=== PATIENT | male | born 1995 | race Caucasian/White ===

== ENCOUNTER 2016-10-02 22:18 | Emergency (ER) | payer MEDICAID ==
[~2016-10-02] VITALS: Ht 188 cm; Wt 86.2 kg
[~2016-10-02 22:18] MED LIST: BENADRYL 50MG C50 MG PO; CLONIDINE 0.2M0.2 MG PO; EPI-PEN1 MG/ML MR; INTUNIV2 MG PO; KEFLEX 250MG.250 MG PO; NAPROSYN 500MG500 MG PO; NOMEDS XX; PREDNISONE 20MG20 MG PO; TAGAMET400 MG PO; TYLENOL W/120 ML/BOT PO; ZITHROMAX Z PA250 MG PO
[2016-10-02] MEDS ORDERED: BACTROBAN2% TP (23:05)
[2016-10-02] MEDS ORDERED: SEPTRA DS 800 M1 TAB PO (23:05)
--- NOTE | 2016-10-02 23:11 | Emergency Room Report ---
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 Y Clinical Suspician of Infection? N Mental Status: 1 - Regular (Normal Baseline) Sepsis Risk:Low Sepsis Risk Have you (or family members/close friends) recently traveled outside the [place]? N If Yes, where/when: Have you had exposure to infectious disease within the past month? N TB? Other? Specify: Source patient, RN notes reviewed, family, old records Exam Limitations no limitations Comment lt nares with tender and no drainage over the last few days Cardiac Chest Pain Chest pain indicative of cardiac No Timing/Duration this evening Severity moderate Home Medications Reported Medications No Home Medications (NO HOME MEDICATIONS) 1 EACH XX ONCE History Medical History General CAD? No Angina: No [place]: No Hypertension? No Hyperlipidemia? No CHF? No DVT? No PE? No COPD? No Asthma? No Anemia? No GERD? No Gastric ulcers? No GI Bleed? No Hernia? No Thyroid Problems? No Hypothyroidism? No CVA? No Seizures? No Diabetes? No Insulin Dependent: No Insulin Pump: No Home FSBS? No Renal Insuffiency? No End Stage Renal Disease? No UTI? No Stones? No BPH? No GB Disease: No Nephritic Syndrome? No Asplenia? No Hepatitis? No Sickle Cell Disease? No Arthritis? No Migraines? No Cataracts? No Glaucoma? No MRSA? No HIV? No TB? No Anxiety? No Depression? No Cancer? No More? No Immunization Hx Ped.Immunizations UTD No DT/Tetanus 1-4 YRS Surgical Hx Previous Surgery?Y Tonsils Social History Smoking Hx Smoker: Current Some Day Smoker Tobacco: No Type Cigarettes Packs/day < 1 Pack Are you/the child exposed to second-hand smoke: No Alcohol Alcohol: No Drugs none Review of Systems All Other Systems Reviewed and Negative Constitutional denies fever Eyes denies drainage ENT see HPI, nose pain. denies: epistaxis, throat pain, throat swelling. Respiratory denies cough, denies shortness of breath Cardiovascular denies chest pain, denies palpitations Gastrointestinal denies abdominal pain, denies diarrhea, denies vomiting Genitourinary denies: dysuria, frequency, hesitancy, hematuria. Musculoskeletal denies back pain, denies joint pain, denies joint swelling, denies neck pain Skin denies rash Psychiatric/Neurological denies headache, denies seizure Physical Exam Vital Signs Vital Signs Date Time Temp Pulse Resp B/P Pulse O2 O2 Flow FiO2 Ox Delivery Rate 10/02 2224 98.2 87 20 132/88 98 - WBC >12,000 or <4,000 or 10% bands? 2 or more SIRS Criteria Met? B/P:132/88 MAP:102 Creatinine >2.0? UA output<0.5ml/kg/hr for 2 hrs? Platelet count >100,000? Lactate >2.0mmol/1? INR >1.2 or PTT > than 60 sec? Evidence of Organ Dysfunction? Provider documented clinical suspician of infection? N Sepsis Criteria Count: 1 Sepsis Risk: Low Sepsis Risk General Appearance no apparent distress Eye Exam - bilateral eye PERRL, bilateral eye EOMI Ear, Nose, Throat nasal cellulitis Neck supple Respiratory Status No: respiratory distress. 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 No Departure Departure Time of Disposition 2302 Disposition [place] Home or Self Care(routine) Clinical Impression Primary Impression: Cellulitis Qualifiers: Site of cellulitis: face Qualified Code: L03.211 - Cellulitis of face Condition STABLE Patient Instructions DI for Cellulitis -- Adult Additional Instructions use meds and see pcp for follow up Discharge Counseling Counseled pt/family regarding diagnosis, medications/RX, follow up needs Prescriptions Current Visit Scripts MUPIROCIN 2% (Bactroban Oint) 1 KELL TP BID #1 TUBE SULFAMETHOXAZOLE/TRIMETHOPRIM (Sulfamethoxazole-Tmp Ds Tablet) 1 TAB PO BID #20 TAB ED Critical Care Critical Care No at 2310
--- NOTE | 2016-10-02 23:11 | Emergency Room Report ---
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 Y Clinical Suspician of Infection? N Mental Status: 1 - Regular (Normal Baseline) Sepsis Risk:Low Sepsis Risk Have you (or family members/close friends) recently traveled outside the [place]? N If Yes, where/when: Have you had exposure to infectious disease within the past month? N TB? Other? Specify: Source patient, RN notes reviewed, family, old records Exam Limitations no limitations Comment lt nares with tender and no drainage over the last few days Cardiac Chest Pain Chest pain indicative of cardiac No Timing/Duration this evening Severity moderate Home Medications Reported Medications No Home Medications (NO HOME MEDICATIONS) 1 EACH XX ONCE History Medical History General CAD? No Angina: No [place]: No Hypertension? No Hyperlipidemia? No CHF? No DVT? No PE? No COPD? No Asthma? No Anemia? No GERD? No Gastric ulcers? No GI Bleed? No Hernia? No Thyroid Problems? No Hypothyroidism? No CVA? No Seizures? No Diabetes? No Insulin Dependent: No Insulin Pump: No Home FSBS? No Renal Insuffiency? No End Stage Renal Disease? No UTI? No Stones? No BPH? No GB Disease: No Nephritic Syndrome? No Asplenia? No Hepatitis? No Sickle Cell Disease? No Arthritis? No Migraines? No Cataracts? No Glaucoma? No MRSA? No HIV? No TB? No Anxiety? No Depression? No Cancer? No More? No Immunization Hx Ped.Immunizations UTD No DT/Tetanus 1-4 YRS Surgical Hx Previous Surgery?Y Tonsils Social History Smoking Hx Smoker: Current Some Day Smoker Tobacco: No Type Cigarettes Packs/day < 1 Pack Are you/the child exposed to second-hand smoke: No Alcohol Alcohol: No Drugs none Review of Systems All Other Systems Reviewed and Negative Constitutional denies fever Eyes denies drainage ENT see HPI, nose pain. denies: epistaxis, throat pain, throat swelling. Respiratory denies cough, denies shortness of breath Cardiovascular denies chest pain, denies palpitations Gastrointestinal denies abdominal pain, denies diarrhea, denies vomiting Genitourinary denies: dysuria, frequency, hesitancy, hematuria. Musculoskeletal denies back pain, denies joint pain, denies joint swelling, denies neck pain Skin denies rash Psychiatric/Neurological denies headache, denies seizure Physical Exam Vital Signs Vital Signs Date Time Temp Pulse Resp B/P Pulse O2 O2 Flow FiO2 Ox Delivery Rate 10/02 2224 98.2 87 20 132/88 98 - WBC >12,000 or <4,000 or 10% bands? 2 or more SIRS Criteria Met? B/P:132/88 MAP:102 Creatinine >2.0? UA output<0.5ml/kg/hr for 2 hrs? Platelet count >100,000? Lactate >2.0mmol/1? INR >1.2 or PTT > than 60 sec? Evidence of Organ Dysfunction? Provider documented clinical suspician of infection? N Sepsis Criteria Count: 1 Sepsis Risk: Low Sepsis Risk General Appearance no apparent distress Eye Exam - bilateral eye PERRL, bilateral eye EOMI Ear, Nose, Throat nasal cellulitis Neck supple Respiratory Status No: respiratory distress. 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 No Departure Departure Time of Disposition 2302 Disposition [place] Home or Self Care(routine) Clinical Impression Primary Impression: Cellulitis Qualifiers: Site of cellulitis: face Qualified Code: L03.211 - Cellulitis of face Condition STABLE Patient Instructions DI for Cellulitis -- Adult Additional Instructions use meds and see pcp for follow up Discharge Counseling Counseled pt/family regarding diagnosis, medications/RX, follow up needs Prescriptions Current Visit Scripts MUPIROCIN 2% (Bactroban Oint) 1 KELL TP BID #1 TUBE SULFAMETHOXAZOLE/TRIMETHOPRIM (Sulfamethoxazole-Tmp Ds Tablet) 1 TAB PO BID #20 TAB ED Critical Care Critical Care No at 2310
[2016-10-02 23:14] VITALS: BP 132/88
== END 2016-10-02 23:17 | disposition home or self-care (01) ==
LOC: ER 22:18
DX: L03.211 Cellulitis of face (principal); Z72.0 Tobacco use

== ENCOUNTER 2017-05-06 17:19 | Emergency (ER) | payer MEDICAID ==
[~2017-05-06] VITALS: Ht 193 cm; Wt 127.0 kg
[~2017-05-06 17:19] MED LIST changes: +BACTROBAN2% TP; +SEPTRA DS 800 M1 TAB PO
--- NOTE | 2017-05-06 17:43 | Urgent Treatment Center Report ---
History of Present Issue Date/Time Seen by Provider 05/06/17 6925 Visit Reason Pt arrived:Walked Presenting Problem:PT C/O RT HAND PAIN AFTER PUNCHING A ROAD SIGN YESTERDAY OUT OF ANGER Location if Accident:Street/Road Onset of symptoms date/time:/ or onset unknown for:MEDICAL HX UNKNOWN Have you (or family members/close friends) recently traveled outside the [place]? N If Yes, where/when: Have you had exposure to infectious disease within the past month? TB? Other? Specify: c/o right middle knuckle pain and swelling after punching a road sign at 11pm last night due to anger. Hx of right hand fracture twice in the past. Thinks once to right 5th MCP and metacarpal leaving hand "permanently deformed because I pushed the knuckle back. The other time to 3rd metacarpal leaving "a bone chip in my knuckle". No treatment prior to arrival. Full ROM but pain 3rd MCP w/ ROM. Also c/o "asthma acting up". Hx of asthma and PNA. Last had PNA 2014 while working in [place]. Cough, chest congestion, worsening SOA, wheezing x 2 weeks. No fever. Hasn't had own inhaler "since I was a kid". Friend had a yellow inhaler and he used that initially. Seemed to help. Girlfriend w/ same symptoms. pt smokes approx 1/2ppd but lately less due to symptoms. Source patient Exam Limitations no limitations ALLERGIES Coded Allergies: No Known Allergies (10/02/16) Home Medications Reported Medications No Home Medications (NO HOME MEDICATIONS) 1 EACH XX ONCE History Medical History General CAD? No Angina: No [place]: No Hypertension? No Hyperlipidemia? No CHF? No DVT? No PE? No COPD? No Asthma? No Anemia? No GERD? No Gastric ulcers? No GI Bleed? No Hernia? No Thyroid Problems? No Hypothyroidism? No CVA? No Seizures? No Diabetes? No Insulin Dependent: No Insulin Pump: No Home FSBS? No Renal Insuffiency? No UTI? No Stones? No BPH? No GB Disease: No Nephritic Syndrome? No Asplenia? No Hepatitis? No Sickle Cell Disease? No Arthritis? No Migraines? No Cataracts? No Glaucoma? No MRSA? No HIV? No TB? No Anxiety? No Depression? No Cancer? No More? No Immunization HX DT/Tetanus 1-4 YRS Surgical Hx Previous Surgery?Y Tonsils Social History Smoking Hx Smoker: Current Every Day Smoker Tobacco: Yes Type Cigarettes Packs/day < 1 Pack Alcohol Alcohol: No Review of Systems All Other Systems Reviewed and Negative Constitutional see HPI Eyes denies drainage ENT see HPI. denies: ear pain, nose discharge, nose congestion, throat pain. Respiratory see HPI Cardiovascular denies chest pain, denies palpitations Gastrointestinal denies no symptoms reported Musculoskeletal denies other (wrist or FA pain) Skin denies change in color, denies lesions, denies lumps, denies rash Psychiatric/Neurological denies headache, denies numbness, denies tingling Physical Exam Vital Signs Vital Signs Date Time Temp Pulse Resp B/P Pulse O2 O2 Flow FiO2 Ox Delivery Rate 05/06 1726 98.2 87 16 148/88 96 General Appearance normal appearance, no apparent distress Eye Exam - bilateral eye normal exam Ear, Nose, Throat normal ENT inspection Neck non-tender, supple Respiratory Status Yes: trachea midline, chest symmetrical, non tender chest, non productive cough (worse w/ deep breathing). No: respiratory distress, use of accessory muscles, pain on inspiration, pain on expiration. Lung Sounds anterior: rhonchi, wheezing (primarily expiratory). posterior: rhonchi, wheezing (primarily expiratory). bilateral: rhonchi, wheezing (primarily expiratory). Cardiovascular regular rate/rhythm, no peripheral edema, no murmur Extremities normal range of motion (rt digits, wrist, elbow), swelling (right 3rd MCP joint), tenderness right 3rd MCP joint and metacarpal Neurologic alert, oriented x 3 Mental status normal mood/affect Skin normal color, warm/dry Lymphatic no adenopathy Medical Decision Making LABS/Meds/Orders Pt receiving controlled substance in ED? No Results/Orders Current Medication Orders Sig/Lou Start time Last Medication Dose Route Stop Time Status Admin Methylprednisolone 0 .STK-MED ONE 05/06 181 DC Sodium Succinate .ROUTE Albuterol/Ipratropium 0 .STK-MED ONE 05/06 1756 DC INH Albuterol/Ipratropium 3 ML ONCE ONE 05/06 1745 DC 05/06 INH 05/06 1746 1745 Methylprednisolone 125 MG ONCE ONE 05/06 1745 DC 05/06 Sodium Succinate IM 05/06 174 1818 Orders Procedure Date/time Status RT Aerosol Treatment, Provide 05/06 1837 Active RT REQUEST DUONEB 05/06 1738 Active HAND-RT 3 VIEWS 05/06 1728 Active CHEST(2 VIEWS-NOT PORTABLE) 05/06 1728 Active XRAY/CT/US XRAY/CT/US XRAY chest, hand (right) XR interpretation by reviewed by me (w/ Dr. Moses) Xray Results no acute findings on CXR or hand xray. Departure Departure Time of Disposition 1908 Disposition [place] Home or Self Care(routine) Clinical Impression Primary Impression: Acute bronchitis Qualifiers: Bronchitis organism: unspecified organism Qualified Code: J20.9 - Acute bronchitis, unspecified Secondary Impressions: Contusion of right hand including fingers Qualifiers: Encounter type: initial encounter Qualified Code: S60.221A - Contusion of right hand, initial encounter Tobacco abuse Condition STABLE Referrals NO REFERRAL Follow up with primary care IMMEDIATELY for new or worsening symptoms OR no noticeable improvement over the next 48-72 hours. 911 for difficulty breathing. Nasim Basilio MD For new, worsening or persistant hand symptoms. If necessary, he will evaluate you and send you to a hand specialist. Patient Instructions DI for Acute Bronchitis, DI for Contusion, How To Perform RICE (Rest, Ice, Compress, Elevate), How to Quit Tobacco Products Additional Instructions * start antibiotic today. Be sure to complete entire prescription even if feeling better. * Monitor Temp. Seek treatment if fever develops * humidifier/vaporizer/hot steamy shower * Inhaler every 4-6 hours as needed like we discussed. If unsure how to use it, ask pharmacist to demonstrate how. Should help open airways and improve cough, wheezing, shortness of breath. * Mucinex during the day for your cough and cough suppressant only at night. Be sure to drink lots of water. Insurance may not cover a prescription of mucinex. Might be cheaper to get 400mg tablets and take 2 tablets morning, midday and evening all with lots of water. * Promethazine DM cough syrup will cause drowsiness. Use it only at night. No driving, operating machinery or caring for small children after taking it. * Start steroid tomorrow since you had an injection in clinic. Helps with inflammation therefore, cough and wheezing. Follow directions on package. Rvwd side effects. Pt reports they have taken them before. STOP SMOKING * * Rest right hand * ice 15-20 mins 3-4 times a day * Elevate as discussed as much as possible to help reduce swelling and therefore , pain * Ibuprofen every 6 hours as needed for pain and inflammation. If you need something more, you can take tylenol every 4 hours as needed as long as your primary care provider has told you it is ok to take both. Discharge Counseling Counseled pt/family regarding diagnosis, test results, medications/RX, home care, follow up needs Prescriptions Current Visit Scripts ALBUTEROL (Proventil Hfa Inhaler) 1-2 PUFF IH Q4-6H PRN PRN SOA, wheezing #1 CAN Azithromycin (Zithromycin (Z-PATRICIA) 250MG Tab) 250 MG PO DAILY #6 TAB TAKE TWO (2) TABLETS ON DAY 1, THEN ONE (1) TABLET DAY #2 THRU #5 Prednisone (Prednisone 20MG) 20 MG PO BID #10 TAB PROMETHAZINE/DEXTROMETHORPHAN (Promethazine-Dm Syrup) 10 ML PO QHSP PRN cough #120 SYR will cause drowsiness at 1914
[2017-05-06] MEDS ORDERED: PROMETHAZINE D118 ML PO (19:14)
[2017-05-06] MEDS ORDERED: PREDNISONE 20MG20 MG PO (19:14)
[2017-05-06] MEDS ORDERED: PROVENTIL0.09 MG/A1 IH (19:14)
[2017-05-06] MEDS ORDERED: ZITHROMAX Z PA250 MG PO (19:14)
[2017-05-06 19:27] VITALS: BP 148/88
--- NOTE | 2017-05-06 21:23 | RADIOLOGY REPORT PS360 ---
CHEST(2 VIEWS-NOT PORTABLE) HISTORY: Cough and congestion HIT A ROAD SIGN YESTERDAY ORDERING PHYSICIAN: MARIANNA JIANG APRN PATIENT AGE: 21 years COMPARISON: 03/09/2012 FINDINGS: The cardiomediastinal silhouette and pulmonary vascularity are within normal limits. The lungs are clear without infiltrates, suspicious nodules, or pleural effusions. No acute bony abnormalities. IMPRESSION: Negative chest, no acute finding
--- NOTE | 2017-05-06 21:25 | RADIOLOGY REPORT PS360 ---
HAND-RT 3 VIEWS HISTORY: Pain following injury HIT A ROAD SIGN YESTERDAY ORDERING PHYSICIAN: MARIANNA JIANG APRN PATIENT AGE: 21 years COMPARISON: 03/14/2017 FINDINGS: There is an old avulsion fracture involving the proximal and ulnar aspect of the proximal phalanx of the third digit. There is an old fracture of the fifth metacarpal. No acute fracture or dislocation with no significant change from 03/14/2017 IMPRESSION: 1. No acute fracture. 2. Old third proximal phalanx and fifth metacarpal fracture
== END 2017-05-06 19:36 | disposition home or self-care (01) ==
LOC: UTC 17:19
DX: S60.221A Contusion of right hand, initial encounter (principal); J20.9 Acute bronchitis, unspecified; Z72.0 Tobacco use; J45.909 Unspecified asthma, uncomplicated; W22.8XXA Striking against or struck by other objects, initial encounter; Y92.89 Other specified places as the place of occurrence of the external cause

== ENCOUNTER 2017-06-04 18:17 | Emergency (ER) | payer SELFPAY ==
[~2017-06-04] VITALS: Ht 193 cm; Wt 102.1 kg
[~2017-06-04 18:17] MED LIST changes: +PROMETHAZINE D118 ML PO; +PROVENTIL0.09 MG/A1 IH
--- OUTSIDE RECORDS SUMMARY | 2017-06-04 18:30 | External Medical Summary Rpt | CCD ---
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 (dipstick) panel in Urine (02-27-2017 14:55) Appeara Clear CLEAR complet nce of 017 ed Urine 14:55 Bilirub NEGATIV NEG complet in 017 E ed [Presen 14:55 ce] in Urine by Test strip Erythro NEGATIV NEG complet cytes 017 E ed [Presen 14:55 ce] in Urine Color YELLOW YELLOW complet of 017 ed Urine 14:55 Ketones NEGATIV NEG complet 017 E ed [Presen 14:55 ce] in Urine by Automat ed test strip Leukocy NEGATIV NEG complet te 017 E ed esteras 14:55 e [Presen ce] in Urine by Automat ed test strip Nitrite NEGATIV NEG complet 017 E ed [Presen 14:55 ce] in Urine by Test strip Urobili 0.2 NEG complet nogen 017 ed [Presen 14:55 ce] in Urine by Test strip Procedures Procedure DOS Code Location Performer Comment APPLICATI 31610 DAMEON HERNANDEZ ON SHORT 7 PHYSICIAN ARM S, PLLC SPLINT FOREARM-H AND STATIC RADEX 09957 DAMEON GUTIERREZUSCH HAND 7 PHYSICIAN MINIMUM 3 S, PLLC VIEWS URNLS DIP 29353 KETAN ACEVES 7 [facility] STICK/TAB INC INC LET RGNT AUTO W/O MICROSCOP Y THERAPEUT 60309 KETAN ACEVES IC 7 [facility] PROPHYLAC INC INC TIC/DX INJECTION SUBQ/IM SMR PRIM 53960 KETAN ACEVES SRC WET 7 [facility] MOUNT INC INC NFCT AGT TISS KALANI 33433 KETAN ACEVES SLIDE 7 [facility] SAMPS INC INC SKN/HR/NL S FNGI/ECTO PARASIT OPHTH 05719 [facility] 4 GRE GRE XM&EVAL COMPRE NEW PT 1/> VST RADEX 22916 KETAN ACEVES HAND 3 [facility] MINIMUM 3 INC INC VIEWS RADEX 92578 [place] HAND 3 [facility] [place] MINIMUM 3 IMAGING VIEWS ASS RADEX 80111 [place] HAND 2 3 [facility] [place] VIEWS IMAGING ASS RADEX 83885 KETAN ACEVES FINGR 3 [facility] MINIMUM 2 INC INC VIEWS CLOSED 89955 [facility] TREATMENT 2 EMERGENCY NASAL SERVICES FRACTURE W/O MANIPULAT ION 3D 95361 KETAN ACEVES RENDERING 2 [facility] INC INC W/INTERP& [place] [address] KETAN ACEVES MAXILLOFA 2 [facility] CIAL W/[place] [address] [place] ABDOMEN & 2 MEDICAL [facility] PELVIS IMAGING W/CONTRAS ASS T MATERIAL RADIOLOGI 66548 [place] C EXAM 2 [facility] CHEST 2 IMAGING VIEWS ASS FRONTAL&L ATERAL CLTX 86121 TEZ MANNING BAB METACARPA 1 EMERGENCY L FX W/O SERVICES MANIPULAT TATIANA EACH BONE SLINGS A4565 LORE L.P. [facility]ORE L.P. 1 RADEX 67891 [facility] HAND 1 [facility] [place] MINIMUM 3 IMAGING VIEWS ASS APPLICATI 9354 KETAN ACEVES ON OF 1 [facility] SPLINT INC INC PERCUTANE 19112 ROBERT ROBERT OUS TESTS 0 GRISELDA GRISELDA W/ALLERGE MARIEL EXTRACTS INTRACUTA 04378 ROBERT ROBERT NEOUS 0 GRISELDA GRISELDA TESTS W/ALLERGE MARIEL EXTRACTS ALLERGEN 70883 KETAN KETAN SPECIFIC 0 [facility] IGE INC INC NANI/SEMI NANI EA ALLERGEN GROUND A0425 [facility] MILEAGE 0 AMBULANCE AMBULANCE PER SERVICE SERVICE STATUTE MILE AMBULANCE A0429 [facility] SERVICE 0 AMBULANCE AMBULANCE BLS SERVICE SERVICE EMERGENCY TRANSPORT RADEX 78675 [facility] HAND 0 [facility]ICAL [facility] MINIMUM [address] PELVIS 55257 [place] MAN[place], W/O & 9 MEDICAL JEANA P W/CONTRAS IMAGING T ASSOCIATE MATERIAL S RADEX 01324 [place] MAN[place], ELBOW 9 MEDICAL JEANA P COMPLETE IMAGING MINIMUM [address] [place] [address] [place] MAN[place], HEAD/BRAI 9 MEDICAL JEANA P N W/O IMAGING CONTRAST ASSOCIATE MATERIAL S AMB A0427 [facility] SERVICE 9 AMBULANCE AMBULANCE ALS SERVICE SERVICE EMERGENCY TRANSPORT LEVEL 1 RADEX HIP 64707 [place], 9 MEDICAL JEANA P UNILATERA IMAGING L ASSOCIATE COMPLETE [place] [address] [place] [address] [place], ABDOMEN 9 MEDICAL JEANA P W/O & IMAGING W/CONTRAS ASSOCIATE T S MATERIAL 3D 92562 [place] MAN[place], RENDERING 9 MEDICAL JEANA P W/INTERP IMAGING & ASSOCI[place] 3D [address] BRE[facility] FAIR, RENDERING 9 MEDICAL JEANA P IMAGING W/INTERP& ASSOCIATE POSTPROC S DIFF WORK STATION GROUND A0425 [facility] 9 AMBULANCE AMBULANCE PER SERVICE SERVICE STATUTE MILE RADIOLOGI 89192 KETAN ACEVES C 9 [facility] EXAMINATI INC INC ON PELVIS 1/2 VIEWS RADEX 69628 [facility], SHOULDER 9 MEDICAL JEANA P COMPLETE IMAGING MINIMUM 2 ASSOCIATE VIEWS S RADIOLOGI 50008 [facility] FAIR, C EXAM 9 MEDICAL JEANA P CHEST 2 IMAGING VIEWS ASSOCIATE FRONTAL&L S ATERAL SIMPLE 01898 TEZ NIGEL, REPAIR 9 EMERGENCY LILLY SCALP/NEC SERVICES O K/AX/JANINA T/TRUNK ASSOCIATE 2.5CM/< S CLOSURE 8659 KETAN ACEVES SKIN&SUBC 9 [facility] UTANEOUS INC INC TISSUE OTHER SITES REMOVAL 15787 PATIENT PINEDA, IMPACTED 9 FIRST TORI CERUMEN PHYS INSTRUMEN TATION UNILAT BLOOD 28052 PATIENT KALFAS, COUNT 8 FIRST SONJA C COMPLETE PHYS AUTO&AUTO DIFRNTL WBC ANTINUCLE 75115 [facility] 8 VANE VANE ANTIBODIE S REMEDIOS MEDICALCE MEDICALCE NTER NTER SEDIMENTA 02633 PATIENT KALFAS, TION RATE 8 FIRST SONJA C RBC PHYS NON-AUTOM ATED IAADIADOO 40153 PATIENT KALFAS, 8 FIRST SONJA C [place] [address] PATIENT KALFAS, FREE 8 [place] [address] PATIENT KALFAS, THYROID 8 FIRST SONJA C STIMULATI PHYS NG HORMONE TSH IAADIADOO 92112 PATIENT KALFAS, 8 FIRST SONJA C STREPTOCO PHYS CCUS GROUP A DIPHTH 72052 PATIENT KALFAS, TETANUS 8 FIRST SONJA C TOX ACELL PHYS PERTUSSIS VACC<7 YR IM STEFANIA 47265 PATIENT KALFAS, VACCINE 8 FIRST SONJA C LIVE FOR PHYS SUBCUTANE OUS USE SKIN TEST 83423 [facility] KETAN 8 HEALTH CO [facility] SIS BANK ACCT INTRADERM AL CL FX 79.03 Chava REDUC-MET mini MONCADA/NATHANIEL Miller MD APPLICATI 93.54 Chava ON OF mini Miller MD Encounters Encounter Start End Date Code Location Performer Type Date EMERGENCY 62499 [facility] 7 7 [facility] DEPART[facility] T VISIT LOW/MODER SEVERITY [facility]OSP[facility] - [facility] OUTPATIEN INC T EMERGENCY 46402 DAMEON HERNANDEZ 7 7 PHYSICIAN DEPARTMEN S, [facility] T VISIT MODERATE SEVERITY OFFICE 57015 KETAN BRIDGES 7 7 [facility] T VISIT 5 INC MINUTES HOSPITAL [facility]AN - 7 7 [facility] OUTPATIEN INC T EMERGENCY 61807 DAMEON BEAVER 7 7 [facility] MOD[facility]ATE SEVERITY EMERGENCY 23686 [facility]AN 7 7 [facility] DEPARTMEN INC T VISIT LOW/MODER SEVERITY [facility]OSPITAL [facility] - 7 7 [facility] OUTPATIEN INC T OFFICE 46578 [facility] VIS[facility] 5 DEPT DEPT MINUTES [facility] OFFICE 28261 [facility] T VISIT 5 DEPT DEPT MINUTES [facility] OFFICE 67979 KETAN KETAN OUTPATIEN 3 3 [facility] V[facility]AL HEAL OFFICE 27767 [facility] ACEVES OUTPATIEN 3 3 [facility] VIS[facility] 5 [facility] MINUT[facility]AL HEAL OFFICE 44112 K[facility] ACEVES OUTPATIEN 3 3 [facility] T VISIT 5 [facility] MINUTES HEAL HEAL Emergency ANITRA Sharp (ER) 3 16:02 3 16:38 [facility]. EMERGENCY 49252 TEZ SHARP 3 3 EMERGENCY III [facility] DEPARTMEN SERVICES T VISIT MODERATE SEVERITY OFFICE 16672 KETAN ACEVES OUTPATIEN 3 3 [facility] VISIT [facility] MINUT[facility] HEAL HEAL OFFICE 19504 [facility] ACEVES OUTPATIEN 3 3 [facility] T VISIT 5 [facility] MINUTES HEAL HEAL OFFICE 42052 [facility] ACEVES OUTPATIEN 3 3 [facility] T VISIT 5 [facility] MINUTES HEAL HEAL OFFICE 28309 [facility] OUTPATI[facility] 3 3 PHYSICIAN JAM T VISIT S GROUP 15 MINUTES HOSPITAL [facility] - 3 3 [facility] OUTPATIEN INC T OFFICE 46593 [facility] OUTPATI[facility] 3 3 PHYSICIAN JAM T VISIT S GROUP 15 MINUTES OFFICE 19299 [facility] OUTPATIEN 3 3 PHYSICIAN JAM T VISIT S GROUP 15 MINUTES Emergency ANITRA Miller MD (ER) 3 16:54 3 19:33 [facility] er R. EMERGENCY 18798 TEZ 3 3 EMERGENCY DEPARTMEN SERVICES T VISIT HIGH/URGE NT SEVERITY OFFICE 79762 [facility] OUTPATIEN 3 3 PHYSICIAN JAM T VISIT S GROUP 15 MINUTES HOSPITAL [facility] - 3 3 [facility] OUTPATIEN INC T Emergency ANITRA Beaver MD (ER) 3 19:22 3 19:52 [facility] EMERGENCY 58428 TEZ DOMINGUEZ 2 2 EMERGENCY DEPARTMEN SERVICES T VISIT MODERATE SEVERITY EMERGENCY 79256 [facility] 2 2 [facility] DEPARTMEN INC T VISIT LOW/MODER SEVERITY [facility]OSPITAL [facility] - 2 2 [facility] OUTPATIEN INC T HOSPITAL [facility] - 2 2 [facility] OUTPATIEN INC T EMERGENCY 54161 [facility] 2 2 [facility] DEPARTMEN INC T VISIT LOW/MODER SEVERITY EMERGENCY 70534 TEZ DOMINGUEZ DEPT 2 2 EMERGENCY VISIT SERVICES HIGH SEVERITY& THREAT FUNCJ OFFICE 51027 MATT MATT OUTPATIEN 1 1 JIMMY JIMMY T VISIT 15 MINUTES OFFICE 80615 Donal C MATT OUTPATIEN 1 1 DINESH JUSTICE JIMMY T VISIT PSC 15 MINUTES OFFICE 72568 [facility] ACEVES OUTPATIEN 1 1 [facility] 10 MINUTES EMERGENCY 17585 TEZ MULLINS 1 1 EMERGENCY DEPARTMEN SERVICES T VISIT HIGH/URGE NT SEVERITY OFFICE 16353 [facility] ACEVES OUTPATIEN 1 1 [facility] 15 MINUTES [facility] - 1 1 [facility] OUTPATIEN INC T EMERGENCY 38486 [facility] 1 1 [facility] DEPARTMEN INC T VISIT LOW/MODER SEVERITY OFFICE 12193 [facility] ACEVES OUTPATIEN 1 1 [facility] 10 MINUTES OFFICE 43917 [facility] ACEVES OUTPATIEN 1 1 [facility] 10 MINUTES OFFICE 22393 [facility] ACEVES OUTPATIEN 1 1 [facility] 10 MINUTES [facility] - 0 0 [facility] OUTPATIEN INC T OFFICE 80035 ROBERT ROBERT OUTPATIEN 0 0 GRISELDA GRISELDA T NEW 45 MINUTES OFFICE 79448 [facility] ACEVES OUTPATIEN 0 0 [facility] 15 MINUTES EMERGENCY 21801 TEZ MULLINS 0 0 EMERGENCY DEPARTMEN SERVICES T VISIT MODERATE SEVERITY [facility]OSPITAL [facility] - 0 0 [facility] OUTPATIEN INC T EMERGENCY 94095 [facility] 0 0 [facility] DEPARTMEN INC T VISIT LOW/MODER SEVERITY EMERGENCY 17306 TEZ ACKERMAN 0 0 EMERGENCY MARGARITA DEPARTMEN SERVICES T VISIT HIGH/URGE NT SEVERITY EMERGENCY 99289 [facility] 0 0 [facility] DEPARTMEN INC T VISIT LOW/MODER SEVERITY [facility]OSPITAL [facility] - 0 0 [facility] OUTPATIEN INC T EMERGENCY 25382 TEZ MANNING, 0 0 EMERGENCY LILLY DEPARTMEN SERVICES O T VISIT MODERATE ASSOCIATE SEVERITY S OFFICE 98212 [facility] 0 MEDICAL ALY Matilda T VISIT GROUP 15 MINUTES OFFICE 63367 AALIYAH FISCHER CONSULTAT 9 9 , DAYSI TAVAREZ ION NEW/ESTAB PATIENT 60 MIN [facility]OSPITAL [facility] - 9 9 [facility] OUTPATIEN INC T EMERGENCY 89808 [facility] 9 9 [facility] DEPARTMEN INC T VISIT HIGH/URGE NT SEVERITY EMERGENCY 13310 TEZ BEAVER, DEPT 9 9 EMERGENCY [facility] VISIT SERVICES HIGH SEVERITY& ASSOCIATE THREAT S [facility] OFFICE 43265 PATIENT PINEDA, OUTPATIEN 9 9 FIRST TORI T VISIT PHYS 15 MINUTES OFFICE 18115 PATIENT PINEDA, OUTPATIEN 9 9 FIRST TORI T VISIT PHYS 15 MINUTES HOSPITAL [facility] - 9 9 [facility] OUTPATIEN INC T EMERGENCY 23957 TEZ MANNING, 9 9 EMERGENCY LILLY DEPARTMEN SERVICES O T VISIT MODERATE ASSOCIATE SEVERITY S EMERGENCY 04172 K[facility] 9 9 [facility] DEPARTMEN INC T VISIT LOW/MODER SEVERITY OFFICE 46647 PATIENT PINEDA, OUTPATIEN 9 9 FIRST TORI T VISIT PHYS 15 MINUTES OFFICE 29669 PATIENT LEI, OUTPATIEN 8 8 FIRST SONJA C T VISIT PHYS [address] [facility] [address] - 8 8 VANE OUTPATIEN T MEDICALCE NTER OFFICE 97760 PATIENT LEI, OUTPATIEN 8 8 FIRST SONJA C T VISIT PHYS 15 MINUTES [facility] 81746 PATIENT NERISSAYARA, PREVENTIV 8 8 FIRST SONJA C E MED EST PHYS PATIENT 5-11YRS OFFICE 18245 [facility] OUTPATIEN 8 8 HEALTH CO [facility]ALTH T VISIT [facility] MIN[facility] BANK ACCT OFFICE 21808 [facility] K[facility]AN OUTPATIEN 8 8 HEALTH CO HEALTH T NEW [facility] MINUTES BANK ACCT
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
--- OUTSIDE RECORDS SUMMARY | 2017-06-04 18:35 | External Medical Summary Rpt ---
Author Author [facility], [facility] [employer] Organization [facility] [employer] Address Unknown Phone Unavailable Results Urinalysis macro (dipstick) panel in Urine Observa Value Referen Units Interpr Notes Date tion ce etation Range Appeara Clear CLEAR No No No Feb 27 nce of informa informa informa 2017 Urine tion in tion in tion in 2:55 PM source source source data data data Bilirub NEGATIV NEG No No No Feb 27 in E informa informa informa 2016 [Presen tion in tion in tion in 2:55 PM ce] in source source source Urine data data data by Test strip Erythro NEGATIV NEG No No No Feb 27 cytes E informa informa informa 2016 [Presen tion in tion in tion in 2:55 PM ce] in source source source Urine data data data Color YELLOW YELLOW No No No Feb 27 of informa informa informa 2017 Urine tion in tion in tion in 2:55 PM source source source data data data Glucose NEG No No No Feb 27 [Mass/vol informati informati informati 2017 2:55 ume] in on in on in on in PM Urine by source source source Test data data data strip Ketones NEGATIV NEG mg/dL No No Feb 27 E informa informa 2016 [Presen tion in tion in 2:55 PM ce] in source source Urine data data by Automat ed test strip pH of 5.0 - 8.5 No Normal No Feb 27 Urine informati informati 2017 2:55 on in on in PM source source data data Protein NEG mg/dL No No Feb 27 [Mass/vol informati informati 2016 2:55 ume] in on in on in PM Urine by source source Automated data data test strip Specific 1.005 - No Normal No Feb 27 gravity 1.030 informati informati 2017 2:55 of Urine on in on in PM source source data data Leukocy NEGATIV NEG No No No Feb 27 te E informa informa informa 2017 esteras tion in tion in tion in 2:55 PM e source source source [Presen data data data ce] in Urine by Automat ed test strip Nitrite NEGATIV NEG No No No Feb 27 E informa informa informa 2016 [Presen tion in tion in tion in 2:55 PM ce] in source source source Urine data data data by Test strip Urobili 0.2 NEG E.U./dL No No Feb 27 nogen informa informa 2016 [Presen tion in tion in 2:55 PM ce] in source source Urine data data by Test strip Chlamydia/GC Amplification Observa Value Referen Units Interpr Notes Date tion ce etation Range Chlamyd Negativ Negativ No No No Feb 27 ia e e informa informa informa 2017 trachom tion in tion in tion in 2:52 PM atis source source source rRNA data data data [Presen ce] in Unspeci fied specime n by Probe & target amplifi cation method Neisser Negativ Negativ No No Perform Feb 27 ia e e informa informa ed at: 2017 gonorrh tion in tion in CB - 2:52 PM oeae source source [facility] rRNA data data [Presen [place] ce] in [address], [facility] [place], [place] Probe & [id number] target 69Lab Directo amplifi r: cation Vincent method Olivier grubbs PhD, Phone: [phone]
--- OUTSIDE RECORDS SUMMARY | 2017-06-04 18:35 | External Medical Summary Rpt | CCD ---
Author Author , DESIREE PARRA Address Unknown Phone [email or web address] Immunization Name Date Rout CVX Reac Dose Comm Prov Is Faci e tion ent ider Refu lity Give sed n Vari 07-2 21 999 Hist H201 No H201 cell 3-19 oric a 98 al Info rmat ion - Sour ce Unsp ecif ied
--- OUTSIDE RECORDS SUMMARY | 2017-06-04 18:35 | External Medical Summary Rpt | CCD ---
Author Author , DESIREE PARRA Address Unknown Phone [email or web address] Immunization Name Date Rout CVX Reac Dose Comm Prov Is Faci e tion ent ider Refu lity Give sed n Vari 07-2 21 999 Hist H201 No H201 cell 3-19 oric a 98 al Info rmat ion - Sour ce Unsp ecif ied
--- OUTSIDE RECORDS SUMMARY | 2017-06-04 18:35 | External Medical Summary Rpt ---
[...] data [Presen [place] ce] in [address], [facility] [place], [place] Probe & [id number] target 69Lab Directo amplifi r: cation Vincent method Olivier grubbs PhD, Phone: [phone]
[2017-06-04 18:57] VITALS: BP 131/75
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
== END 2017-06-04 18:58 | disposition home or self-care (01) ==
LOC: UTC 18:17
PROC: 2W3CX1Z Immobilization of Right Lower Arm using Splint (ICD-10-PCS; principal; 2017-06-04)
DX: S69.91XA Unspecified injury of right wrist, hand and finger(s), initial encounter (principal); W23.1XXA Caught, crushed, jammed, or pinched between stationary objects, initial encounter

== ENCOUNTER 2017-07-10 23:56 | Emergency (ER) | payer SELFPAY ==
[~2017-07-10] VITALS: Ht 193 cm; Wt 104.3 kg
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
[2017-07-11 01:11] VITALS: BP 136/78
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
== END 2017-07-11 ==
LOC: ER 23:56
DX: S16.1XXA Strain of muscle, fascia and tendon at neck level, initial encounter (principal); S00.93XA Contusion of unspecified part of head, initial encounter